=== PATIENT | male | born 1960 | race Hispanic/Latino ===

== ENCOUNTER 2018-04-25 11:51 | Inpatient (IN) | payer OTHER, SELFPAY ==
[2018-04-20 14:18] VITALS: BMI 26.4
[2018-04-25] VITALS (12 sets, daily range): BP systolic 120–157; BP diastolic 66–93; PULSE 71–84; RESP 12–163; TEMP 36.2–37.4; O2SAT 93–100; BMI 25.0
[2018-04-25] MEDS: LACTATED RINGERS 1,000 ML 42 ML IV ×2 (12:46→14:24)
[2018-04-25] MEDS: CEFAZOLIN 1 GM/50 ML FROZ.PIGGY IV (13:18)
--- NOTE | 2018-04-25 13:20 | PM.PREOP ---
Pre-operative Note Interval Note Pre-op Check: History & Physical Reviewed by Physician and Changes
--- NOTE | 2018-04-25 13:52 | SUR.OPER ---
Supine on padded OR bed. Pillow under head, arms secured on padded armboards <90 degree abduction. Safety belt across torso. Non-operative leg secured with tape over blanket over lower leg. Operative leg secured in [place]/True positioner.
[2018-04-25] MEDS: MORPHINE 4 MG/ML INJ INJ (14:33)
[2018-04-25] MEDS: BUPIVACAINE 0.25% W/ EPI 50 ML VIAL INJ (14:33)
[2018-04-25] MEDS: BUPIVACAINE LIPOSOME 266 MG/20 ML VIAL INJ (14:33)
--- NOTE | 2018-04-25 15:09 | DI.RAD.S_ITS ---
PROCEDURE: XR KNEE RT 1TO2V INDICATIONS: post operative right total knee TECHNIQUE: 2 view(s) of the knee acquired. [facility] KNEE ARTHRITIC SERIES RT, 10/13/2017, 15:18. FINDINGS: Bones: Patient is status post knee joint arthroplasty. Hardware components are in expected positions. Visualized bony structures are intact. Soft tissues: Overlying postoperative changes are noted. IMPRESSION: Acute postoperative changes of total right knee arthroplasty with expected appearance Dictated by: Fei Miguel M.D. on 04/25/2018 at 15:37 Approved by: Fei Miguel M.D. on 04/25/2018 at 15:37
--- NOTE | 2018-04-25 15:10 | P.OP_ITS ---
Operative Date/Time/Diagnoses - Date of procedure: 04/25/18 Time of procedure: 15:10 Pre-op diagnosis: Right knee posttraumatic osteoarthritis Post-op diagnosis: same Procedure & Clinicians Procedure: Right total knee replacement Same procedure as scheduled: Yes Indications: The patient has had progressively worsening right knee pain with radiographic changes consistent with arthritis. Non-operative management has failed and the patient has requested total knee replacement. The risks, benefits and alternatives to surgery were discussed with the patient prior to proceeding. Risks discussed included, but were not limited to, failure to relieve pain, stiffness, infection, nerve damage, deep venous thrombosis, pulmonary embolism, stroke, coma, heart attack, permanent paralysis and , as well as the potential need for eventual revision of the prosthetic. Surgeon: Tommie Mclaughlin Separations Scientist: Shae Zavala Click Yes if Unassisted: No Anesthesia Type: Spinal, Sedation and Local Operative Notes Findings: Severe lateral and moderate patellofemoral osteoarthritis. Closure Type: primary Specimen(s): none sent Implants & Drains: Implants used in this procedure were manufactured by the [employer] and [employer]) and included the BCS II Journey total knee replacement with a size 5 right Oxinium femoral component, a size 4 right non porous tibial base plate, a 9 mm cross-linked polyethylene BCS II tibial insert and a 32 mm oval Maddy II patella. Applied: implant(s) Estimated Blood Loss (mL): 50 Blood products transfused: none Tourniquet time (min): 51 Procedure in detail: The patient was seen in the pre-operative area, where the patient identified the right knee as the operative site and this was marked with my initials. The patient received pre-operative antibiotics, and was taken to the operating room and placed on the operative table in the supine position. After satisfactory anesthesia, a part time flexible clerk out was performed. The right leg was encircled with a tourniquet about the proximal thigh, and the leg was prepared from the toes to the tourniquet with ChloroPrep in the usual fashion and draped through sterile drapes. The leg was elevated and exsanguinated with Eschmark bandage and the tourniquet inflated to 250 mmHg pressure. The knee was approached through an approximately 18 cm incision centered over the patella and carried into the knee through a medial parapatellar arthrotomy. The anterior osteophytes and soft tissues were removed. The rotational landmarks of Phani's line and the transepicondylar axis were marked on the femur with electrocautery, and intramedullary guide holes for the femur and tibia were created. The distal femoral cut was made in 6 degrees of valgus using the intramedullary guide at the primary cut setting. The proximal tibial cut was then made using the intramedullary guide, taking 9 mm of bone off the less involved side. The extension gap was checked and the rotation of the femoral component confirmed with the gap balancing system. The anterior, posterior and chamfer cuts were then made. The posterior osteophytes and soft tissues were then removed. The posterior capsule was injected with part of a mixture of 50 ml 0.25% Marcaine mixed with 20 ml Exparel and 4 mg of morphine for post-operative pain control. The remainder of this mixture was injected into the capsule and subcutaneous tissues during cement curing. The tibia was prepared with the rotation set by an extra medullary guide. Trial tibial and femoral components were then placed and the intercondylar notch cut through the femoral trial. Range of motion was 0-135 degrees, with good stability throughout the range. The patella was then cut to accommodate the patellar prosthetic. There was no need for a lateral release. The trials were then removed, and the femoral hole plugged with a bone plug. The bone was prepared with pulsatile lavage, and dried with a sponge. Cement was applied and the final prosthetics placed. Excess cement was removed during and after cement curing. After confirming there was no extruded cement posteriorly, the final tibial insert was placed. The knee was copiously irrigated and the tourniquet deflated. Hemostasis was obtained. The capsule was closed with interrupted # 2 polyester suture. The subcutaneous layer was closed with 3-0 Vicryl, and the skin with a running 3-0 V-Lock suture and SteriStrips. An Aquacel Ag dressing was applied and the patient was taken to recovery having tolerated the procedure well. Complications: none Condition: stable Disposition: PACU Plan for aftercare: The patient will be maintained on a standard total knee replacement protocol with weight bearing as tolerated. The patient will receive aspirin and sequential compression devices for DVT prophylaxis. The patient will be discharged home when safe for the home environment.
[2018-04-25] MEDS: OXYCODONE IR 10 MG TABLET PO ×2 (16:29→19:33)
[2018-04-25] MEDS: LACTATED RINGERS 1,000 ML 125 ML IV ×2 (16:30→21:55)
[2018-04-25] MEDS: HYDROMORPHONE 2 MG INJ IV (17:47)
[2018-04-25] MEDS: ACETAMINOPHEN 325 MG TABLET 650 MG PO ×2 (19:34→23:58)
[2018-04-25] MEDS: CEFAZOLIN 2 GM/100 ML FROZ.PIGGY IV (21:30)
[2018-04-25] MEDS: ASPIRIN EC 81 MG TABLET PO (21:30)
[2018-04-25] MEDS: DOCUSATE 100 MG CAPSULE PO (21:30)
[2018-04-26] MEDS: hydrOXYzine pamoate 25 MG CAPSULE PO
[2018-04-26] MEDS: OXYCODONE IR 10 MG TABLET PO ×6 (00:01→22:24)
[2018-04-26 05:00] VITALS: BP 131/80; PULSE 90; RESP 22; TEMP 36.8; O2SAT 97
[2018-04-26] MEDS: CEFAZOLIN 2 GM/100 ML FROZ.PIGGY IV (05:01)
[2018-04-26] MEDS: ACETAMINOPHEN 325 MG TABLET 650 MG PO ×3 (05:04→17:11)
[2018-04-26] MEDS: LACTATED RINGERS 1,000 ML 125 ML IV (05:08)
[2018-04-26 07:20] LABS: Hematocrit 37.3 % (41-53); Hemoglobin 12.6 g/dL (13.5-17.5)
[2018-04-26 07:25] VITALS: BP 139/91; PULSE 111; RESP 16; TEMP 36.6; O2SAT 98
[2018-04-26] MEDS: DOCUSATE 100 MG CAPSULE PO ×2 (09:13→20:12)
[2018-04-26] MEDS: ASPIRIN EC 81 MG TABLET PO ×2 (09:13→20:12)
[2018-04-26] MEDS: LOSARTAN 50 MG TABLET PO (09:14)
[2018-04-26 11:20] VITALS: BP 155/90; PULSE 92; RESP 17; TEMP 36.6; O2SAT 98
--- NOTE | 2018-04-26 12:20 | PT.IIE ---
Current Diagnoses Unilateral post-traumatic osteoarthritis, right knee (04/25/18) Derangement of unspecified lateral meniscus due to old tear or injury, right knee (04/25/18) Surgery Performed Operation Date: 04/25/18 13:45 Actual Procedures p Total Knee Arthroplasty(Right) - Tommie Mclaughlin MD Surgical History (Last Updated 04/20/18 @ 14:44 by Yesenia Parrish, RN) S/P right knee arthroscopy (Acute) Medical History (Last Updated 04/20/18 @ 15:30 by Yesenia Parrish, RN) Old tear of lateral meniscus of right knee (Acute) Constipation (Acute) Depression (Acute) Fracture, ankle (Acute) Hip pain (Acute) History of headache (Acute) Hypertension (Acute) Impaired vision (Acute) Insomnia (Acute) Low back pain (Acute) Osteoarthritis (Acute) Spinal stenosis (Acute) Physical Therapy Inpatient Evaluation/Re-Eval M1 PT/OT-IP Prior Functional Status Start: 04/26/18 08:14 Freq: NEEDED Status: Active Protocol: Document 04/26/18 10:20 RS (Rec: 04/26/18 12:20 RS [id number]) Medical Review Prior Functional Status Medical History Reviewed Yes Diet/Fluid Consistency Regular Communication no known deficits Mobility and Gait ind with all mobility, drives, currently not able to work Social History Household Members none other Living Arrangements House Number of Floors (Floors) One Floor Number of Stairs To Enter/Railing? 2STE with 1 rail Home Environment Standard Height Toilet Home Equipment Crutches Employment Status Unemployed Additional Social History Comment This might be from a work injury, currently no able to work. M2 PT-IP Current Condition Start: 04/26/18 08:14 Freq: NEEDED Status: Active Protocol: Document 04/26/18 10:20 RS (Rec: 04/26/18 12:20 RS [id number]) Physical Therapy Current Condition Current Condition Evaluation Date 04/26/18 Treatment Diagnosis impaired mobility s/p R TKA Onset Date 04/25/18 Weight Bearing Status Weight Bearing Status Weight Bear as Tolerated M3 PT-IP Subjective Start: 04/26/18 08:14 Freq: NEEDED Status: Active Protocol: Document 04/26/18 10:20 RS (Rec: 04/26/18 12:20 RS [id number]) Subjective Physical Therapy Visit Type Type Initial Evaluation Visit Start Time 09:30 Visit Stop Time 10:20 Total Visit Minutes 50 Notes Persian interpretter utilized the entire session Physical Therapy Visit Comments Patient Comments Pt reports doing well but nervous about getting up. Patient/Caregiver Goals go home when ready Therapy Pain Assessment Pain When Pain Assessed At Rest Pain Present Pain Present Pain Reported Location right knee Intensity 2 Scale Used Numeric (1 - 10) Pain Management Techniques Apply Cold Modification of Treatment Re-positioning Timing of Activity with Medications M4 PT-IP Mobility and Gait Start: 04/26/18 08:14 Freq: NEEDED Status: Active Protocol: Document 04/26/18 10:20 RS (Rec: 04/26/18 12:20 RS [id number]) PT-Bed Mobility Assessment Supine to Sit Supine to Sit Standby Assistance 1 Person Assistance Head of Bed Elevated Scooting Scooting to Edge of Bed Standby Assistance PT-Transfer Assessment Sit to and From Stand Sit to and from Stand Contact Guard Assistance 1 Person Assistance Use of Upper Extremities Equipment Transfer Assistive Device Gait Belt Front Wheeled Walker Transfers Transfer Destination Chair Transfer Technique Stand Step Pivot Transfer Ability Level of Assist Contact Guard Assistance 1 Person Assistance Use of Upper Extremities Comments Mobility Comments Pt initially reported being a little dizzy, BP normal, it went away quickly. Gait Assessment Gait Gait Assistance Required: Contact Guard Assist 1 Person Assist Distance (Feet) (feet) 25 Assistive Devices Assistive Device Gait Belt Front Wheeled Walker Gait Deviations General Gait Pattern Antalgic Decreased Stride Length Decreased Feet Clearance Step-to Gait Factors Limiting Gait Function Factors Limiting Gait Function Decreased Activity Tolerance Decreased Strength Limited Range of Motion Pain Comments Gait Comments Pt stable without any LOB, relying heavily on BUE to unweight the RLE, might need to try a slightly shorter FWW. Stair Climbing Assessment Comments Stair Climbing Comments not yet tested PT-Balance Assessment Sitting Balance and Reactions Static Sitting Balance Ability Normal Dynamic Sitting Balance Ability Normal Standing Balance and Reactions Static Standing Balance Ability Good Dynamic Standing Balance Ability Fair Device Used FWW M5 PT-IP Objective Assessments Start: 04/26/18 08:14 Freq: NEEDED Status: Active Protocol: Document 04/26/18 10:20 RS (Rec: 04/26/18 12:20 RS [id number]) Orientation Orientation/Cognition Level of Alertness Alert Orientation Name Age Birthday Month Date Year Day of Week Place Situation Language Function Ability No Deficits Noted Safety Awareness Understands Safety Issues Memory Description No Deficits Noted Gross Range of Motion Upper Extremity ROM Assessment Within Functional Limits Lower Extremity ROM Assessment Right Impaired Strength Upper Extremity Strength Assessment Within Functional Limits Comments Strength Comments RLE not formally tested, LLE WFL. M6 PT-IP Treatment Start: 04/26/18 08:14 Freq: NEEDED Status: Active Protocol: Document 04/26/18 10:20 RS (Rec: 04/26/18 12:20 RS [id number]) Physical Therapy Treatment Exercises Exercises Ankle Pumps Quad Sets Heel Slides Straight Leg Raises Short Arc Quads Passive Knee Extension Hang Seated Knee Flexion/Extension Knee ROM Measurement 10-70 Education Education Provided Precautions Weight Bearing Status Post-Op Packet Safety M7 PT-IP Assessment and Plan Start: 04/26/18 08:14 Freq: NEEDED Status: Active Protocol: Document 04/26/18 10:20 RS (Rec: 04/26/18 12:20 RS [id number]) PT Summary Assessment and Plan Potential Rehabilitation Potential Good Status of Condition at Evaluation Stable Summary Impairments Pain ROM Strength Bed Mobility Transfers Gait Activity Tolerance Progress Towards Goals Progressing Toward Goals Assessment Summary Pt doing well POD#1, will likely need to get a FWW prior to discharge but will trial crutches per pt's wishes. Anticipate that with ongoing skilled acute PT and regular mobilization with nursing staff that pt will be safe to discharge directly to home with intermittent assist from friends. Pt will benefit from either OPPT or HHPT, will continue to assess and update discharge recommendations. Goals Bed Mobility Goal Independent Transfer Goal Independent Crutches Front Wheeled Walker Gait Goal Independent Crutches Front Wheel Walker Gait Distance 100 Other Goals Up/down two steps with CGA, LRAD and/or 1 rail. Days to Meet Goals 2 Frequency of Treatment Frequency Of Treatment Twice a Day Treatment Plan Physical Therapy Treatment Plan Bed Mobility Training Transfer Training Gait Training Therapeutic Exercise Discharge Planning Other Recommendations and Next Treatment trial stairs, crutches, Focus establish need for formalized caregiver training Recommendations To Nursing Amount of Assist Needed 1 Person Assist Discharge Recommendations PT Discharge Recommendations Home with Assistance Home Health Outpatient PT Provider Visit Care Team Role Provider Type Tommie Mclaughlin MD Admit Provider Physician Attending Provider Specialty: Orthopedic Surgery
--- NOTE | 2018-04-26 14:16 | CM.DPNOTE ---
DCP/Assessment completed via fire eater provided by [employer]: Eulalio Sadler. Patient is independent at baseline and has OP PT scheduled. He has no concerns or needs at this time. Plan: Patient to discharge home with supportive friends and OP PT when medically stable.
--- NOTE | 2018-04-26 14:42 | PM.PNPO.1 ---
Subjective Date Patient Seen: 04/26/18 Time Patient Seen: 14:42 Interval history: Patient is postop day 1. Right total knee arthroplasty by Dr. Mclaughlin. German-speaking only. Party Plan Demonstrator in the room. Patient states that he has only ambulated in the room with PT. Pain controlled with medications. Already has his discharge medications. Feels that he is not ready to go home today. Exam Vital Signs (past 8 hours): Vital Signs - 8 hr 04/26/18 07:25 04/26/18 11:20 Temperature 97.9 F 97.9 F Pulse Rate 111 H 92 H Respiratory Rate 16 17 Blood Pressure 139/91 H 155/90 H Pulse Oximetry 98 98 Pulse Oximetry 98 Oxygen Delivery Method Room Air Narrative Exam Narrative: Patient in chair. Appears comfortable. Alert and orient x3. Right knee dressing intact with 1 spot of blood at the lower end of the dressing. Albert bandage overwrap on the right knee. Bilateral calves soft and nontender. 5/5 right ankle strength. Neurovascular status intact. Objective Labs Result Diagrams: 04/26/18 06:50 Labs: Laboratory Results - last 24 hr 04/26/18 06:50 Hgb 12.6 L Hct 37.3 L Assessment & Plan Post-op (1) Osteoarthritis of right knee: Problem details: Patient is postop day 1 right total knee arthroplasty. Continue to ambulate with physical therapy. Continue pain medications. Will continue DVT prophylaxis with aspirin 81 mg b.i.d. and SCDs. Plan for discharge home tomorrow. Current Visit: Yes Status: Acute Postoperative Procedures Operation Date: 04/25/18 13:45 Actual Procedures Side Surgeon p Total Knee Arthroplasty Right Tommie Mclaughlin MD Time Spent With Patient less than 15 minutes
--- NOTE | 2018-04-26 14:46 | P.PN_ITS ---
Subjective Date Patient Seen: 04/26/18 Time Patient Seen: 14:42 Interval history: Patient is postop day 1. Right total knee arthroplasty by Dr. Mclaughlin. Kosovan-speaking only. Line Palletizer in the room. Patient states that he has only ambulated in the room with PT. Pain controlled with medications. Already has his discharge medications. Feels that he is not ready to go home today. Exam Vital Signs (past 8 hours): Vital Signs - 8 hr 3 04/26/18 07:25 04/26/18 11:20 Temperature 97.9 F 97.9 F Pulse Rate 111 H 92 H Respiratory Rate 16 17 Blood Pressure 139/91 H 155/90 H Pulse Oximetry 98 98 Pulse Oximetry 98 Oxygen Delivery Method Room Air Narrative Exam Narrative: Patient in chair. Appears comfortable. Alert and orient x3. Right knee dressing intact with 1 spot of blood at the lower end of the dressing. Albert bandage overwrap on the right knee. Bilateral calves soft and nontender. 5/5 right ankle strength. Neurovascular status intact. Objective Labs Result Diagrams: 04/26/18 06:50 Labs: Laboratory Results - last 24 hr 04/26/18 06:50 Hgb 12.6 L Hct 37.3 L Assessment & Plan Post-op (1) Osteoarthritis of right knee: Problem details: Patient is postop day 1 right total knee arthroplasty. Continue to ambulate with physical therapy. Continue pain medications. Will continue DVT prophylaxis with aspirin 81 mg b.i.d. and SCDs. Plan for discharge home tomorrow. Current Visit: Yes Status: Acute Postoperative Procedures Operation Date: 04/25/18 13:45 Actual Procedures Side Surgeon p Total Knee Arthroplasty Right Tommie Mclaughlin MD Time Spent With Patient less than 15 minutes
--- NOTE | 2018-04-26 15:00 | PT.IPTN ---
Current Diagnoses Unilateral primary osteoarthritis, right knee (04/25/18) Unilateral post-traumatic osteoarthritis, right knee (04/25/18) Derangement of unspecified lateral meniscus due to old tear or injury, right knee (04/25/18) Surgery Performed Operation Date: 04/25/18 13:45 Actual Procedures p Total Knee Arthroplasty(Right) - Tommie Mclaughlin MD Physical Therapy Treatment Note M2 PT-IP Current Condition Start: 04/26/18 08:14 Freq: NEEDED Status: Active Protocol: Document 04/26/18 14:15 DCW (Rec: 04/26/18 15:00 DCW [id number]) Physical Therapy Current Condition Current Condition Evaluation Date 04/26/18 Treatment Diagnosis impaired mobility s/p R TKA Onset Date 04/25/18 Weight Bearing Status Weight Bearing Status Weight Bear as Tolerated M3 PT-IP Subjective Start: 04/26/18 08:14 Freq: NEEDED Status: Active Protocol: Document 04/26/18 14:15 DCW (Rec: 04/26/18 15:00 DCW [id number]) Subjective Physical Therapy Visit Type Type Treatment Note Visit Start Time 14:15 Visit Stop Time 14:50 Total Visit Minutes 35 Notes Hebrew interpretter utilized the entire session Physical Therapy Visit Comments Patient Comments Pt reports he has been having some pain. M4 PT-IP Mobility and Gait Start: 04/26/18 08:14 Freq: NEEDED Status: Active Protocol: Document 04/26/18 14:15 DCW (Rec: 04/26/18 15:00 DCW [id number]) Gait Assessment Gait Gait Assistance Required: Contact Guard Assist 1 Person Assist Distance (Feet) (feet) 100 Assistive Devices Assistive Device Gait Belt Front Wheeled Walker Gait Deviations General Gait Pattern Antalgic Decreased Stride Length Decreased Feet Clearance Step-to Gait Factors Limiting Gait Function Factors Limiting Gait Function Decreased Activity Tolerance Decreased Strength Limited Range of Motion Pain Comments Gait Comments Verbal cues tofocus on step- through gait, pt puts significant force through upper eztremities. M6 PT-IP Treatment Start: 04/26/18 08:14 Freq: NEEDED Status: Active Protocol: Document 04/26/18 14:15 DCW (Rec: 04/26/18 15:00 DCW [id number]) Physical Therapy Treatment Exercises Exercises Ankle Pumps Heel Slides Other Treatments Other Treatment Performed Seated Marching LAQ M7 PT-IP Assessment and Plan Start: 04/26/18 08:14 Freq: NEEDED Status: Active Protocol: Document 04/26/18 14:15 DCW (Rec: 04/26/18 15:00 DCW [id number]) PT Summary Assessment and Plan Summary Impairments Pain ROM Strength Bed Mobility Transfers Gait Activity Tolerance Progress Towards Goals Progressing Toward Goals Assessment Summary POD #1: Pt continued to require verbal cues during ambulation for step-through gait and decreased reliance on UEs. Pt unable to perform LAQ or seated marching independently, required AAROM. With continued improvement, pt will likely discharge home with OPPT. Goals Bed Mobility Goal Independent Transfer Goal Independent Crutches Front Wheeled Walker Gait Goal Independent Crutches Front Wheel Walker Gait Distance 100 Other Goals Up/down two steps with CGA, LRAD and/or 1 rail. Days to Meet Goals 2 Frequency of Treatment Frequency Of Treatment Twice a Day Treatment Plan Physical Therapy Treatment Plan Bed Mobility Training Transfer Training Gait Training Therapeutic Exercise Discharge Planning Other Recommendations and Next Treatment trial stairs, crutches, Focus establish need for formalized caregiver training Recommendations To Nursing Amount of Assist Needed 1 Person Assist Discharge Recommendations PT Discharge Recommendations Home with Assistance Home Health Outpatient PT
[2018-04-26 17:50] VITALS: BP 158/94; PULSE 99; RESP 20; TEMP 36.9; O2SAT 98
--- NOTE | 2018-04-26 20:59 | PC.NURSE ---
Addendum entered by Estrella Chairez R.N. 04/26/18 22:56: Pt HR in high 80's to mid 90's after 20 mg diltiazem given. Tele NSR. Original Note: Addendum entered by Estrella Chairez R.N. 04/26/18 21:21: Discussed with Dr. Bishop over the phone results of Stat EKG ordered, showing SVT with moderate ST depression, pt remains asymptomatic. MD ordered telemetry monitoring, 20 mg IV diltiazem now and PRN 20 mg IV diltiazem if pt HR is greater than 120. Original Note: Evening Shift Note Pt HR increasing to 160's, BP 173/88, pt on RA 96%, pt diaphoretic, denies chest pain, denies SOB, denies pain in R knee. Stat EKG ordered which showed supraventricular tachycardia with moderate ST depression. Contacted Dr. Mclaughlin to make aware, STAT cardiac enzymes ordered, telemetry placed on patient. MD stated he will contact hospitalist to come assess patient. Continuous pulse ox in place.
[2018-04-26 21:35] LABS: Creatine Kinase 138 U/L (55-170)
[2018-04-26 21:37] VITALS: BP 140/88; PULSE 145
[2018-04-26] MEDS: dilTIAZem 25 MG/5 ML SDV 20 MG IV (21:37)
[2018-04-26 21:50] LABS: Troponin I < 0.012 ng/mL (0.01-0.034)
[2018-04-26 21:51] LABS: CKMB % Relative Index 0.4 % (1.5-5.0); Creatine Kinase MB 0.57 ng/mL (<2.37)
[2018-04-27] VITALS (8 sets, daily range): BP systolic 111–141; BP diastolic 68–101; PULSE 73–160; RESP 16–20; TEMP 36.6–37.6; O2SAT 93–98
[2018-04-27] MEDS: ACETAMINOPHEN 325 MG TABLET 650 MG PO ×4 (00:30→17:52)
[2018-04-27] MEDS: hydrOXYzine pamoate 25 MG CAPSULE PO (00:34)
[2018-04-27] MEDS: dilTIAZem 25 MG/5 ML SDV 20 MG IV (07:55)
--- NOTE | 2018-04-27 08:44 | PC.NURSE ---
Pt had a bowel movement this morning without any difficulty. Heart rate up to the 150s and 20 mg of iv diltiazem administered and pts heart rate down to the 90s. He denies any chest pain and is feeling better. When episode started pt states that he did feel anxious. Dr. Serrano aware by note on her office door. Have not seen her come in to the hospital yet this morning.
[2018-04-27] MEDS: OXYCODONE IR 10 MG TABLET PO ×4 (09:09→20:21)
[2018-04-27] MEDS: LOSARTAN 50 MG TABLET PO (09:10)
[2018-04-27] MEDS: ASPIRIN EC 81 MG TABLET PO ×2 (09:10→20:22)
[2018-04-27] MEDS: DOCUSATE 100 MG CAPSULE PO (09:10)
--- NOTE | 2018-04-27 11:16 | PM.CN ---
History of Present Illness Date Patient Seen: 04/27/18 Time Patient Seen: 11:00 Chief complaint: [id number] RIGHT TOTAL KNEE ARTHROPLASTY Reason for consult: I was asked by Dr. Mclaughlin to see this patient for tachycardia after surge Requesting provider: Tommie Mclaughlin Narrative: 57-year-old man with history of hypertension who was electively admitted 3 days ago for right total knee arthroplasty. He was noted to have heart rate of 100 and 60s last night. His heart rate did improve with IV diltiazem. He had another incident where his heart rate went up to 150 earlier this morning. He again received IV diltiazem. Patient feels that he was having pain both incidences when his heart rate went up. He did have prior history of intermittent palpitations. He did not have a definitive diagnosis of was the underlying rhythm. No prior history of coronary artery disease. He denies chest pain [facility] Medical History Osteoarthritis of right knee (Acute) Old tear of lateral meniscus of right knee (Acute) Constipation (Acute) Depression (Acute) Fracture, ankle (Acute) Hip pain (Acute) History of headache (Acute) Hypertension (Acute) Impaired vision (Acute) Insomnia (Acute) Low back pain (Acute) Osteoarthritis (Acute) Spinal stenosis (Acute) Surgical History S/P right knee arthroscopy (Acute) Social History household members: none and other Smoking Status: Never smoker alcohol intake: current Meds Home Medications Medication Instructions Recorded Confirmed Type losartan 50 mg PO DAILY 04/20/18 04/25/18 History omeprazole 20 mg PO PRN PRN 04/20/18 04/25/18 History Allergies Allergy/AdvReac Type Severity Reaction Status Date / Time No Known Drug Allergies Allergy Verified 04/25/18 12:20 Exam Vital Signs (past 8 hours): Vital Signs - 8 hr 04/27/18 05:35 04/27/18 07:25 04/27/18 07:55 Temperature 97.8 F 97.9 F Pulse Rate 93 H 89 160 H Respiratory Rate 20 16 Blood Pressure 128/93 H 141/101 H Pulse Oximetry 97 95 04/27/18 09:10 Temperature Pulse Rate 87 Respiratory Rate Blood Pressure 137/79 H Pulse Oximetry Pulse Oximetry 95 Oxygen Delivery Method Room Air Narrative Exam Narrative: GENERAL: Well-appearing, well-nourished and in no acute distress. HEENT: Head normocephalic, atraumatic. Eyes pupils equal round NECK: Supple, no JVD, CHEST: Breath sounds equal bilaterally, no wheezes rales or rhonchi. CARDIAC: Regular rate and rhythm without murmurs, heart rate was 90, no rubs or gallops. ABDOMEN: Soft, nontender. Normoactive bowel sounds all 4 quadrants. No guarding or rebound. EXTREMITIES: No pitting edema on bilateral ankles. Right knee was dressed and dressing NEUROLOGICAL: Alert and oriented; Normal muscle strength. SKIN: Warm, dry, no petechiae, no rashes or lesions. Objective Imaging EKG: ECG: EKG showed supraventricular tachycardia with heart rate of 160. No acute ST-T changes Labs Result Diagrams: 04/26/18 06:50 Labs: Laboratory Results - last 24 hr 04/26/18 21:10 Total Creatine Kinase 138 CK-MB (CK-2) 0.57 CK-MB (CK-2) Rel Index 0.4 L Troponin I < 0.012 Assessment & Plan Plan: Assessment/Plan Narrative: 1. Paroxysmal supraventricular tachycardia: May be associated with pain after surgery. We will start him on oral metoprolol XL 100 mg daily. Continue as needed IV diltiazem as needed for rate control. 2. Hypertension: Start metoprolol XL 100 mg daily. Decrease losartan from 50 mg once a day to 25 mg once a day. Continue monitor his blood pressure readings 3. Osteoarthritis in the right knee: Status post right total knee arthroplasty by Dr. Mclaughlin on April 25, 2018. Followed by Orthopedics service. 4. DVT prophylaxis: Per ortho service
--- NOTE | 2018-04-27 11:23 | P.CONS_ITS ---
History of Present Illness Date Patient Seen: 04/27/18 Time Patient Seen: 11:00 Chief complaint: [id number] RIGHT TOTAL KNEE ARTHROPLASTY Reason for consult: I was asked by Dr. Mclaughlin to see this patient for tachycardia after surge Requesting provider: Tommie Mclaughlin Narrative: 57-year-old man with history of hypertension who was electively admitted 3 days ago for right total knee arthroplasty. He was noted to have heart rate of 100 and 60s last night. His heart rate did improve with IV diltiazem. He had another incident where his heart rate went up to 150 earlier this morning. He again received IV diltiazem. Patient feels that he was having pain both incidences when his heart rate went up. He did have prior history of intermittent palpitations. He did not have a definitive diagnosis of was the underlying rhythm. No prior history of coronary artery disease. He denies chest pain [facility] Medical History Osteoarthritis of right knee (Acute) Old tear of lateral meniscus of right knee (Acute) Constipation (Acute) Depression (Acute) Fracture, ankle (Acute) Hip pain (Acute) History of headache (Acute) Hypertension (Acute) Impaired vision (Acute) Insomnia (Acute) Low back pain (Acute) Osteoarthritis (Acute) Spinal stenosis (Acute) Surgical History S/P right knee arthroscopy (Acute) Social History household members: none and other Smoking Status: Never smoker alcohol intake: current Meds Home Medications Medication Instructions Recorded Confirmed Type losartan 50 mg PO DAILY 04/20/18 04/25/18 History omeprazole 20 mg PO PRN PRN 04/20/18 04/25/18 History Allergies Allergy/AdvReac Type Severity Reaction Status Date / Time No Known Drug Allergies Allergy Verified 04/25/18 12:20 Exam Vital Signs (past 8 hours): Vital Signs - 8 hr 3 04/27/18 05:35 04/27/18 07:25 04/27/18 07:55 Temperature 97.8 F 97.9 F Pulse Rate 93 H 89 160 H Respiratory Rate 20 16 Blood Pressure 128/93 H 141/101 H Pulse Oximetry 97 95 3 04/27/18 09:10 Temperature Pulse Rate 87 Respiratory Rate Blood Pressure 137/79 H Pulse Oximetry Pulse Oximetry 95 Oxygen Delivery Method Room Air Narrative Exam Narrative: GENERAL: Well-appearing, well-nourished and in no acute distress. HEENT: Head normocephalic, atraumatic. Eyes pupils equal round NECK: Supple, no JVD, CHEST: Breath sounds equal bilaterally, no wheezes rales or rhonchi. CARDIAC: Regular rate and rhythm without murmurs, heart rate was 90, no rubs or gallops. ABDOMEN: Soft, nontender. Normoactive bowel sounds all 4 quadrants. No guarding or rebound. EXTREMITIES: No pitting edema on bilateral ankles. Right knee was dressed and dressing NEUROLOGICAL: Alert and oriented; Normal muscle strength. SKIN: Warm, dry, no petechiae, no rashes or lesions. Objective Imaging EKG: ECG: EKG showed supraventricular tachycardia with heart rate of 160. No acute ST-T changes Labs Result Diagrams: 04/26/18 06:50 Labs: Laboratory Results - last 24 hr 04/26/18 21:10 Total Creatine Kinase 138 CK-MB (CK-2) 0.57 CK-MB (CK-2) Rel Index 0.4 L Troponin I < 0.012 Assessment & Plan Plan: Assessment/Plan Narrative: 1. Paroxysmal supraventricular tachycardia: May be associated with pain after surgery. We will start him on oral metoprolol XL 100 mg daily. Continue as needed IV diltiazem as needed for rate control. 2. Hypertension: Start metoprolol XL 100 mg daily. Decrease losartan from 50 mg once a day to 25 mg once a day. Continue monitor his blood pressure readings 3. Osteoarthritis in the right knee: Status post right total knee arthroplasty by Dr. Mclaughlin on April 25, 2018. Followed by Orthopedics service. 4. DVT prophylaxis: Per ortho service
[2018-04-27] MEDS: METOPROLOL ER 50 MG TABLET 100 MG PO (12:31)
--- NOTE | 2018-04-27 12:41 | P.PN_ITS ---
Subjective Date Patient Seen: 04/27/18 Time Patient Seen: 12:41 Interval history: POD #2 status post right total knee arthroplasty with Dr. Mclaughlin. Patient had an episode of SVT last night and this morning. Hospitalist was consulted. Patient started on metoprolol. Patient has a history of prior palpitations but no significant cardiac history. He has been up with PT. Exam Vital Signs (past 8 hours): Vital Signs - 8 hr 3 04/27/18 05:35 04/27/18 07:25 04/27/18 07:55 Temperature 97.8 F 97.9 F Pulse Rate 93 H 89 160 H Respiratory Rate 20 16 Blood Pressure 128/93 H 141/101 H Pulse Oximetry 97 95 3 04/27/18 09:10 Temperature Pulse Rate 87 Respiratory Rate Blood Pressure 137/79 H Pulse Oximetry Pulse Oximetry 95 Oxygen Delivery Method Room Air Narrative Exam Narrative: Patient is sitting at bedside chair in no acute distress. He is alert and oriented x3. Calves are soft, compressible, nontender bilaterally. Dressing on right knee is CDI. Sensation intact to light touch throughout bilateral lower extremities. He is able to actively dorsiflex and plantar flex. Objective Labs Result Diagrams: 04/26/18 06:50 Labs: Laboratory Results - last 24 hr 04/26/18 21:10 Total Creatine Kinase 138 CK-MB (CK-2) 0.57 CK-MB (CK-2) Rel Index 0.4 L Troponin I < 0.012 Assessment & Plan Post-op (1) S/P total knee arthroplasty: Current Visit: Yes Status: Acute Postoperative Procedures Operation Date: 04/25/18 13:45 Actual Procedures Side Surgeon p Total Knee Arthroplasty Right Tommie Mclaughlin MD POD #2 status post right total knee arthroplasty with Dr. Mclaughlin. We will continue to monitor blood pressure and palpitations. Patient will continue to mobilize with physical therapy. Continue ASA for DVT prophylaxis. Continue current pain management. Likely discharged in next 1-2 days once stable. Time Spent With Patient less than 15 minutes
--- NOTE | 2018-04-27 13:21 | PT.IPTN ---
Current Diagnoses Unilateral primary osteoarthritis, right knee (04/25/18) Unilateral post-traumatic osteoarthritis, right knee (04/25/18) Derangement of unspecified lateral meniscus due to old tear or injury, right knee (04/25/18) Presence of unspecified artificial knee joint (04/25/18) Surgery Performed Operation Date: 04/25/18 13:45 Actual Procedures p Total Knee Arthroplasty(Right) - Tommie Mclaughlin MD Physical Therapy Treatment Note M2 PT-IP Current Condition Start: 04/26/18 08:14 Freq: NEEDED Status: Active Protocol: Document 04/26/18 14:15 DCW (Rec: 04/26/18 15:00 DCW [id number]) Physical Therapy Current Condition Current Condition Evaluation Date 04/26/18 Treatment Diagnosis impaired mobility s/p R TKA Onset Date 04/25/18 Weight Bearing Status Weight Bearing Status Weight Bear as Tolerated M3 PT-IP Subjective Start: 04/26/18 08:14 Freq: NEEDED Status: Active Protocol: Document 04/27/18 11:20 CLB (Rec: 04/27/18 13:21 CLB [id number]) Subjective Physical Therapy Visit Type Type Treatment Note Visit Start Time 11:20 Visit Stop Time 11:45 Total Visit Minutes 25 Number of GAR[employer] INSTALLER Visits 1 Physical Therapy Visit Comments Patient Comments Pt willing to do therapy. Therapy Pain Assessment Pain When Pain Assessed During Mobility Pain Present Pain Present Pain Reported Location right knee Intensity 2 M4 PT-IP Mobility and Gait Start: 04/26/18 08:14 Freq: NEEDED Status: Active Protocol: Document 04/27/18 11:20 CLB (Rec: 04/27/18 13:21 CLB [id number]) PT-Transfer Assessment Sit to and From Stand Sit to and from Stand Contact Guard Assistance 1 Person Assistance Use of Upper Extremities Equipment Transfer Assistive Device Gait Belt Front Wheeled Walker Transfers Transfer Destination Chair Transfer Technique after walking in stern Transfer Ability Level of Assist Contact Guard Assistance 1 Person Assistance Use of Upper Extremities Comments Mobility Comments Pt doing well with mobility with no c/o dizziness. Gait Assessment Gait Gait Assistance Required: Contact Guard Assist Distance (Feet) (feet) 100 Assistive Devices Assistive Device Gait Belt Front Wheeled Walker Gait Deviations General Gait Pattern Antalgic Decreased Stride Length Decreased Feet Clearance Step-to Gait Factors Limiting Gait Function Factors Limiting Gait Function Decreased Activity Tolerance Decreased Strength Limited Range of Motion Pain Comments Gait Comments Pt using less UE strength during ambulation and is using a small step-through gait patter. Pt has good walker use and safety awareness. Stair Climbing Assessment Evaluation Level of Assist On Stairs Contact Guard Assistance Devices Stair Climbing Assistive Devices Left Railing Right Railing Technique/Endurance Stair Climbing Direction Ascend and Descend Stair Climbing Technique Step to Step Number of Steps Climbed 3 Query Text: Stair Climbing Set # Repetitions (reps) 2 Comments Stair Climbing Comments Pt did well with stairs and friend was present for stair training. Pt would benefit from another trial with stairs . M5 PT-IP Objective Assessments Start: 04/26/18 08:14 Freq: NEEDED Status: Active Protocol: Document 04/26/18 10:20 RS (Rec: 04/26/18 12:20 RS [id number]) Orientation Orientation/Cognition Level of Alertness Alert Orientation Name Age Birthday Month Date Year Day of Week Place Situation Language Function Ability No Deficits Noted Safety Awareness Understands Safety Issues Memory Description No Deficits Noted Gross Range of Motion Upper Extremity ROM Assessment Within Functional Limits Lower Extremity ROM Assessment Right Impaired Strength Upper Extremity Strength Assessment Within Functional Limits Comments Strength Comments RLE not formally tested, LLE WFL. M6 PT-IP Treatment Start: 04/26/18 08:14 Freq: NEEDED Status: Active Protocol: Document 04/27/18 11:20 CLB (Rec: 04/27/18 13:21 CLB [id number]) Physical Therapy Treatment Exercises Exercises Ankle Pumps Quad Sets Short Arc Quads Seated Knee Flexion/Extension M7 PT-IP Assessment and Plan Start: 04/26/18 08:14 Freq: NEEDED Status: Active Protocol: Document 04/27/18 11:20 CLB (Rec: 04/27/18 13:21 CLB [id number]) PT Summary Assessment and Plan Summary Impairments Pain ROM Strength Bed Mobility Transfers Gait Activity Tolerance Progress Towards Goals Progressing Toward Goals Assessment Summary Pt doing will with sit<> and needed minor cues for posture and step sequencing. Pt trialed stairs but would benefit from another session of stairs. Goals Bed Mobility Goal Independent Transfer Goal Independent Crutches Front Wheeled Walker Gait Goal Independent Crutches Front Wheel Walker Gait Distance 100 Other Goals Up/down two steps with CGA, LRAD and/or 1 rail. Days to Meet Goals 2 Frequency of Treatment Frequency Of Treatment Twice a Day Treatment Plan Other Recommendations and Next Treatment trial stairs, crutches, Focus establish need for formalized caregiver training Recommendations To Nursing Amount of Assist Needed 1 Person Assist Discharge Recommendations PT Discharge Recommendations Home with Assistance Home Health Outpatient PT
[2018-04-27 14:48] LABS: Add Manual Diff / Slide Review NO; Basophils Percent Auto 0.6 % (0-2); Eosinophils Percent Auto 0.4 % (2-4); Hematocrit 36.1 % (41-53); Hemoglobin 12.4 g/dL (13.5-17.5); Lymphocytes Percent Auto 14.1 % (25-40); Mean Corpuscular HGB Conc 34.4 % (30-36); Mean Corpuscular Hemoglobin 30.7 PG (26-34); Mean Corpuscular Volume 89.1 fL (80-100); Monocytes Percent Auto 10.6 % (3-14); Neutrophils Absolute Auto 7500 /uL (3000-5900); Neutrophils Percent Auto 74.3 % (50-75); Platelet Count 246 X10^3/uL (150-400); Red Blood Cell Count 4.05 X10^6/uL (4.5-5.9); Red Cell Distribution Width 13.7 % (11.6-14.8)
[2018-04-27 14:55] LABS: BUN Creatinine Ratio 15.7 (6-22); Blood Urea Nitrogen 11 mg/dL (9-20); Carbon Dioxide 28 mmol/L (22-32); Chloride 95 mmol/L (98-107); Estimated Glomerular Filt Rate > 60.0 mL/min (>60); Glucose 147 mg/dL (70-100); HEMOLYSIS < 15 (0-50); Potassium 4.4 mmol/L (3.4-5.1); Sodium 134 mmol/L (137-145)
[2018-04-27 15:52] LABS: TSH w/ Reflex to FT4 1.58 uIU/mL (0.47-4.68)
--- NOTE | 2018-04-27 16:32 | PT.IPTN ---
Current Diagnoses Unilateral primary osteoarthritis, right knee (04/25/18) Unilateral post-traumatic osteoarthritis, right knee (04/25/18) Derangement of unspecified lateral meniscus due to old tear or injury, right knee (04/25/18) Presence of unspecified artificial knee joint (04/25/18) Surgery Performed Operation Date: 04/25/18 13:45 Actual Procedures p Total Knee Arthroplasty(Right) - Tommie Mclaughlin MD Physical Therapy Treatment Note M2 PT-IP Current Condition Start: 04/26/18 08:14 Freq: NEEDED Status: Active Protocol: Document 04/26/18 14:15 DCW (Rec: 04/26/18 15:00 DCW [id number]) Physical Therapy Current Condition Current Condition Evaluation Date 04/26/18 Treatment Diagnosis impaired mobility s/p R TKA Onset Date 04/25/18 Weight Bearing Status Weight Bearing Status Weight Bear as Tolerated M3 PT-IP Subjective Start: 04/26/18 08:14 Freq: NEEDED Status: Active Protocol: Document 04/27/18 15:55 CLB (Rec: 04/27/18 16:32 CLB [id number]) Subjective Physical Therapy Visit Type Type Treatment Note Visit Start Time 15:55 Visit Stop Time 15:20 Total Visit Minutes 25 Number of [facility] ATTENDANT Visits 2 Physical Therapy Visit Comments Patient Comments Pt willing to do therapy. Therapy Pain Assessment Pain When Pain Assessed During Mobility Pain Present Pain Present Pain Reported Location right knee Intensity 6 Scale Used Numeric (1 - 10) Pain Management Techniques Apply Cold Modification of Treatment Re-positioning Timing of Activity with Medications M4 PT-IP Mobility and Gait Start: 04/26/18 08:14 Freq: NEEDED Status: Active Protocol: Document 04/27/18 15:55 CLB (Rec: 04/27/18 16:32 CLB [id number]) PT-Bed Mobility Assessment Supine to Sit Supine to Sit Standby Assistance 1 Person Assistance Sit to Supine Sit to Supine Minimal Assistance Scooting Scooting to Edge of Bed Standby Assistance PT-Transfer Assessment Sit to and From Stand Sit to and from Stand Contact Guard Assistance 1 Person Assistance Use of Upper Extremities Equipment Transfer Assistive Device Gait Belt Front Wheeled Walker Transfers Transfer Destination Bed Transfer Technique after walking in stern Transfer Ability Level of Assist Contact Guard Assistance 1 Person Assistance Use of Upper Extremities Comments Mobility Comments Pt continues to do well with all mobility, pt is hooking LLE under RLE to get RLE out and into bed. Gait Assessment Gait Gait Assistance Required: Contact Guard Assist Distance (Feet) (feet) 100 Assistive Devices Assistive Device Gait Belt Front Wheeled Walker Gait Deviations General Gait Pattern Antalgic Decreased Stride Length Decreased Feet Clearance Step-to Gait Factors Limiting Gait Function Factors Limiting Gait Function Decreased Activity Tolerance Decreased Strength Limited Range of Motion Pain Comments Gait Comments Pt needing cues to take smaller step with left foot. Pt using a small step-through gait pattern w/larger step with left foot. M5 PT-IP Objective Assessments Start: 04/26/18 08:14 Freq: NEEDED Status: Active Protocol: Document 04/26/18 10:20 RS (Rec: 04/26/18 12:20 RS [id number]) Orientation Orientation/Cognition Level of Alertness Alert Orientation Name Age Birthday Month Date Year Day of Week Place Situation Language Function Ability No Deficits Noted Safety Awareness Understands Safety Issues Memory Description No Deficits Noted Gross Range of Motion Upper Extremity ROM Assessment Within Functional Limits Lower Extremity ROM Assessment Right Impaired Strength Upper Extremity Strength Assessment Within Functional Limits Comments Strength Comments RLE not formally tested, LLE WFL. M6 PT-IP Treatment Start: 04/26/18 08:14 Freq: NEEDED Status: Active Protocol: Document 04/27/18 15:55 CLB (Rec: 04/27/18 16:32 CLB [id number]) Physical Therapy Treatment Exercises Exercises Quad Sets Heel Slides Short Arc Quads M7 PT-IP Assessment and Plan Start: 04/26/18 08:14 Freq: NEEDED Status: Active Protocol: Document 04/27/18 15:55 CLB (Rec: 04/27/18 16:32 CLB [id number]) PT Summary Assessment and Plan Summary Impairments Pain ROM Strength Bed Mobility Transfers Gait Activity Tolerance Progress Towards Goals Progressing Toward Goals Assessment Summary Pt continues to do well with bed mobility, transfers and gait. Pt needs minor cues for step sequencing with gait. Goals Bed Mobility Goal Independent Transfer Goal Independent Crutches Front Wheeled Walker Gait Goal Independent Crutches Front Wheel Walker Other Goals Up/down two steps with CGA, LRAD and/or 1 rail. Days to Meet Goals 2 Frequency of Treatment Frequency Of Treatment Twice a Day Treatment Plan Other Recommendations and Next Treatment stairs with friend [place] Focus Recommendations To Nursing Amount of Assist Needed 1 Person Assist Discharge Recommendations PT Discharge Recommendations Home with Assistance Home Health Outpatient PT
[2018-04-28] VITALS (9 sets, daily range): BP systolic 103–136; BP diastolic 65–81; PULSE 73–94; RESP 17–20; TEMP 36.5–37.1; O2SAT 95–98
[2018-04-28] MEDS: ACETAMINOPHEN 325 MG TABLET 650 MG PO ×4 (01:22→18:01)
[2018-04-28] MEDS: OXYCODONE IR 10 MG TABLET PO ×4 (01:22→19:15)
--- NOTE | 2018-04-28 07:41 | P.DS_ITS ---
History of Present Illness Date Patient Seen: 04/28/18 Time Patient Seen: 07:39 Chief complaint: [id number] RIGHT TOTAL KNEE ARTHROPLASTY Narrative: Patient is seen status post right TKA postop day 3. Patient is doing better. He denies any type of chest pain or shortness of breath. He is complaining of a little bit of knee pain however he has not had his morning dose of oxycodone. He would like to go home today. Discharge Providers Date of admission: 04/25/18 11:51 Consults: 04/25/18 15:50 Consult to Discharge Planning Routine Comment: Consult to Physical Therapy Evaluate & Treat Comment: Physician Instructions: postop TKA protocol 04/27/18 07:56 Consult to Hospitalist Service Routine Comment: Consulting Provider: Mley Serrano Reason for consultation: SVT last night Has provider been notified: Yes Discharge provider: Shae Zavala PA-C Summary Discharge Diagnosis: right knee osteoarthritis Hospital Course: Patient was admitted status post right TKA on 04/25/18. On postop day 2 patient had a run of SVT. He was seen by the hospitalist who placed him on a lower dose of losartan as well as extended release metoprolol. His heart rate has come down with these medications. His vitals are stable and he has been cleared by PT. Status at Discharge Cognitive/behavioral status at discharge: A&Ox4. Functional status at discharge: uses cane/walker Overall status at discharge: patient is progressing back to baseline Time Spent with Patient Less than 30 minutes Exam Vital Signs (past 8 hours): Vital Signs - 8 hr 3 04/28/18 01:25 04/28/18 04:01 Temperature 98.8 F 98.4 F Pulse Rate 76 73 Respiratory Rate 19 19 Blood Pressure 136/77 H 103/65 Pulse Oximetry 98 95 Pulse Oximetry 95 Oxygen Delivery Method Room Air Narrative Exam Narrative: Patient is well-developed well-nourished in no acute distress. Examination of the right knee shows mild inflammation with an Aquacel dressing that is clean dry and intact. No calf tenderness, full range of motion at the ankle. He is neurovascularly intact in this extremity. Objective Labs Result Diagrams: 04/27/18 14:35 04/27/18 14:35 Labs: Laboratory Results - last 24 hr 04/27/18 04/27/18 04/27/18 14:35 14:35 14:35 WBC 10.0 RBC 4.05 L Hgb 12.4 L Hct 36.1 L MCV 89.1 MCH 30.7 MCHC 34.4 RDW 13.7 Plt Count 246 Neut % (Auto) 74.3 Lymph % (Auto) 14.1 L Simpson % (Auto) 10.6 Eos % (Auto) 0.4 L Baso % (Auto) 0.6 Neut # (Auto) 7500 H Sodium 134 L Potassium 4.4 Chloride 95 L Carbon Dioxide 28 BUN 11 Creatinine 0.70 Estimated GFR > 60.0 BUN/Creatinine Ratio 15.7 Glucose 147 H Calcium 9.0 TSH 1.58 Discharge Plan Discharge Plan Patient Disposition: Home, Self-Care Discharge Med Rec/Prescriptions Prescriptions: New aspirin 81 mg Tablet,Delayed Release (Dr/Ec) 81 mg PO BID Qty: 0 RF: 0 docusate sodium 100 mg Capsule 100 mg PO BID Qty: 0 RF: 0 oxycodone 10 mg Tablet 5 mg PO Q4H PRN (Reason: Pain, Moderate) Qty: 0 RF: 0 metoprolol succinate 100 mg tablet extended release 24 hr 100 mg PO DAILY Qty: 30 RF: 0 losartan 25 mg tablet 25 mg PO DAILY Qty: 30 RF: 0 Continue omeprazole 20 mg Capsule,Delayed Release(Dr/Ec) 20 mg PO PRN PRN (Reason: Heartburn) RF: 0 Discontinued losartan 50 mg Tablet 50 mg PO DAILY RF: 0 Follow up/Referrals: Shae Zavala PA-C [Physician] - 05/06/18 1:00 pm (At the [place] office.) Mely Serrano MD [Physician] - (Please make an appointment within 3-5 days of d/ c) Provider Discharge Instructions Diet: Diet as Tolerated Activity: WBAT, rest when needed Cold/Heat Therapy: Ice and elevate at least 20 minutes per hour while awake Wound Care Report to your healthcare provider any signs of infection, such as:: chills, fever, night sweats, increased pain and unusual drainage Dressing: Keep Aquacel dressing on, may shower with it on, no bathing or soaking. Visit Report/Discharge Packet Instructions: DI for Knee Replacement Discharge Data Attending Provider: Tommie Mclaughlin Admit Date/Time: 04/25/18 11:51 Quality VTE Deep Vein Thrombosis/Pulmonary Embolism Present on Admission: No
[2018-04-28] MEDS: ASPIRIN EC 81 MG TABLET PO ×2 (09:00→20:02)
[2018-04-28] MEDS: DOCUSATE 100 MG CAPSULE PO ×2 (09:00→20:02)
[2018-04-28] MEDS: METOPROLOL ER 50 MG TABLET PO ×2 (09:01→11:00)
[2018-04-28] MEDS: LOSARTAN 25 MG TABLET PO (09:01)
--- NOTE | 2018-04-28 09:15 | P.PN_ITS ---
Subjective Date Patient Seen: 04/28/18 Time Patient Seen: 08:08 Interval history: This is postop day 3 for this 57-year-old patient with the total right knee arthroplasty. Patient is sitting in the bedside chair in no acute distress. Exam Vital Signs (past 8 hours): Vital Signs - 8 hr 3 04/28/18 01:25 04/28/18 04:01 04/28/18 08:32 Temperature 98.8 F 98.4 F 97.7 F Pulse Rate 76 73 79 Respiratory Rate 19 19 18 Blood Pressure 136/77 H 103/65 136/76 H Pulse Oximetry 98 95 97 Pulse Oximetry 97 Oxygen Delivery Method Room Air Narrative Exam Narrative: GENERAL: Well-appearing, well-nourished and in no acute distress. HEENT: Head normocephalic, atraumatic. Eyes pupils equal round NECK: Supple, no JVD, CHEST: Breath sounds equal bilaterally, no wheezes rales or rhonchi. CARDIAC: Regular rate and rhythm without murmurs, heart rate was 78, no rubs or gallops. ABDOMEN: Soft, nontender. Normoactive bowel sounds all 4 quadrants. No guarding or rebound. EXTREMITIES: No pitting edema on bilateral ankles. He has mild inflammation of the right knee. No calf tenderness, he has full range of motion at the ankles, and is neurovascularly intact in the extremities Right knee was dressed and dressing was intact with minimal spotting. NEUROLOGICAL: Alert and oriented; Normal muscle strength. SKIN: Warm, dry, no petechiae, no rashes or lesions. Objective Labs Result Diagrams: 04/27/18 14:35 04/27/18 14:35 Labs: Laboratory Results - last 24 hr 04/27/18 04/27/18 04/27/18 14:35 14:35 14:35 WBC 10.0 RBC 4.05 L Hgb 12.4 L Hct 36.1 L MCV 89.1 MCH 30.7 MCHC 34.4 RDW 13.7 Plt Count 246 Neut % (Auto) 74.3 Lymph % (Auto) 14.1 L [place] % (Auto) 10.6 Eos % (Auto) 0.4 L Baso % (Auto) 0.6 Neut # (Auto) 7500 H Sodium 134 L Potassium 4.4 Chloride 95 L Carbon Dioxide 28 BUN 11 Creatinine 0.70 Estimated GFR > 60.0 BUN/Creatinine Ratio 15.7 Glucose 147 H Calcium 9.0 TSH 1.58 Assessment & Plan Plan: Assessment/Plan Narrative: 1. Paroxysmal supraventricular tachycardia: May be associated with pain after surgery. His THS was normal. He was started yesterday on oral metoprolol XL 100 mg. There has been no need for further IV diltiazem for rate control since yesterday morning. His heart rate remains in the 70s that a low 80s. We will decrease his metoprolol XL to 50 mg daily for discharge.. 2. Hypertension: Start metoprolol XL 50 mg daily Decrease losartan from 50 mg once a day to 25 mg once a day. His blood pressure is currently well controlled. 3. Osteoarthritis in the right knee: Status post right total knee arthroplasty by Dr. Mclaughlin on April 25, 2018. Followed by Orthopedics service as outpatient. Quality VTE Deep Vein Thrombosis/Pulmonary Embolism Present on Admission: No
--- NOTE | 2018-04-28 09:35 | PT.IPTN ---
Current Diagnoses Unilateral primary osteoarthritis, right knee (04/25/18) Unilateral post-traumatic osteoarthritis, right knee (04/25/18) Derangement of unspecified lateral meniscus due to old tear or injury, right knee (04/25/18) Presence of unspecified artificial knee joint (04/25/18) Surgery Performed Operation Date: 04/25/18 13:45 Actual Procedures p Total Knee Arthroplasty(Right) - Tommie Mclaughlin MD Physical Therapy Treatment Note M2 PT-IP Current Condition Start: 04/26/18 08:14 Freq: NEEDED Status: Active Protocol: Document 04/26/18 14:15 DCW (Rec: 04/26/18 15:00 DCW [id number]) Physical Therapy Current Condition Current Condition Evaluation Date 04/26/18 Treatment Diagnosis impaired mobility s/p R TKA Onset Date 04/25/18 Weight Bearing Status Weight Bearing Status Weight Bear as Tolerated M3 PT-IP Subjective Start: 04/26/18 08:14 Freq: NEEDED Status: Active Protocol: Document 04/28/18 09:35 GGD (Rec: 04/28/18 12:22 GGD [email or web address]) Subjective Physical Therapy Visit Type Type Treatment Note Visit Start Time 09:00 Visit Stop Time 09:35 Total Visit Minutes 35 Number of HEALTH PROFESSIONAL Visits 3 Physical Therapy Visit Comments Patient Comments Pt wants to take a shower after PT. Therapy Pain Assessment Pain When Pain Assessed At Rest Pain Present Pain Present Denied Pain M4 PT-IP Mobility and Gait Start: 04/26/18 08:14 Freq: NEEDED Status: Active Protocol: Document 04/28/18 09:35 GGD (Rec: 04/28/18 12:22 GGD [email or web address]) PT-Transfer Assessment Sit to and From Stand Sit to and from Stand Standby Assistance Use of Upper Extremities Equipment Transfer Assistive Device Gait Belt Front Wheeled Walker Transfers Transfer Destination Toilet Transfer Technique gait Transfer Ability Level of Assist Standby Assistance Use of Upper Extremities Gait Assessment Gait Gait Assistance Required: Contact Guard Assist Distance (Feet) (feet) 200 Assistive Devices Assistive Device Gait Belt Front Wheeled Walker Gait Deviations General Gait Pattern Antalgic Decreased Stride Length Decreased Feet Clearance Factors Limiting Gait Function Factors Limiting Gait Function Decreased Activity Tolerance Decreased Strength Limited Range of Motion Pain Stair Climbing Assessment Evaluation Level of Assist On Stairs Contact Guard Assistance Devices Stair Climbing Assistive Devices Left Railing Technique/Endurance Stair Climbing Direction Ascend and Descend Stair Climbing Technique Step to Step Number of Steps Climbed 3 Query Text: Stair Climbing Set # Repetitions (reps) 1 s: Active Protocol: Document 04/28/18 09:35 GGD (Rec: 04/28/18 12:22 GGD [email or web address]) Physical Therapy Treatment Exercises Exercises Ankle Pumps Quad Sets Heel Slides Short Arc Quads Seated Knee Flexion/Extension Other Treatments Other Treatment Performed Issued FWW for home. M7 PT-IP Assessment and Plan Start: 04/26/18 08:14 Freq: NEEDED Status: Active Protocol: Document 04/28/18 09:35 GGD (Rec: 04/28/18 12:22 GGD [email or web address]) PT Summary Assessment and Plan Summary Assessment Summary Pt improving with mobility and safety. He need less assist and safe with stair mobility. He had a step through gait pattern. Frequency of Treatment Frequency Of Treatment Twice a Day Treatment Plan Other Recommendations and Next Treatment bed mobility. Focus Recommendations To Nursing Amount of Assist Needed 1 Person Assist Discharge Recommendations PT Discharge Recommendations Home with Assistance Home Health Outpatient PT
[2018-04-28] MEDS: dilTIAZem 25 MG/5 ML SDV 20 MG IV (09:58)
--- NOTE | 2018-04-28 14:53 | PC.NURSE ---
Addendum entered by Kimberlyn Fenton R.N. 04/28/18 15:04: AMBULATING WITH PHYSICAL THERAPY HR 92 PER TELE. Original Note: SHIFT SUMMARY: PATIENT SHOWERED THIS AM. AFTERWARDS HR 150'S TO 160'S. ASYMPTOMATIC. IV DILT GIVEN PER PRN ORDER. GEM NAVARRO NOTIFIED. INCREASED METOPROLOL UP TO 100MG AGAIN. HOLD DC HOME. AMBULATE AGAIN THIS AFTERNOON AND MONITOR HR. OXYCODONE AND TYLENOL FOR PAIN.
--- NOTE | 2018-04-28 15:20 | CM.DPC ---
DCP: continued: ortho PA did see pt today and deemed his stable for d/c to home as per plan. Hospitalist team cancelled the d/c after pt became tachycardic while having a shower (160). P: remains home when stable for same.
--- NOTE | 2018-04-28 15:43 | PT.IPTN ---
Current Diagnoses Unilateral primary osteoarthritis, right knee (04/25/18) Unilateral post-traumatic osteoarthritis, right knee (04/25/18) Derangement of unspecified lateral meniscus due to old tear or injury, right knee (04/25/18) Presence of unspecified artificial knee joint (04/25/18) Surgery Performed Operation Date: 04/25/18 13:45 Actual Procedures p Total Knee Arthroplasty(Right) - Tommie Mclaughlin MD Physical Therapy Treatment Note M2 PT-IP Current Condition Start: 04/26/18 08:14 Freq: NEEDED Status: Active Protocol: Document 04/26/18 14:15 DCW (Rec: 04/26/18 15:00 DCW [id number]) Physical Therapy Current Condition Current Condition Evaluation Date 04/26/18 Treatment Diagnosis impaired mobility s/p R TKA Onset Date 04/25/18 Weight Bearing Status Weight Bearing Status Weight Bear as Tolerated M3 PT-IP Subjective Start: 04/26/18 08:14 Freq: NEEDED Status: Active Protocol: Document 04/28/18 14:58 DCW (Rec: 04/28/18 15:42 DCW [id number]) Subjective Physical Therapy Visit Type Type Treatment Note Visit Start Time 14:58 Visit Stop Time 15:25 Total Visit Minutes 28 Number of HOME HEALTH SPEECH THERAPIST Visits 0 Physical Therapy Visit Comments Patient Comments Pt on phone when therapist entered room, quickly ended call and was excited to begin therapy session. M4 PT-IP Mobility and Gait Start: 04/26/18 08:14 Freq: NEEDED Status: Active Protocol: Document 04/28/18 14:58 DCW (Rec: 04/28/18 15:42 DCW [id number]) PT-Bed Mobility Assessment Sit to Supine Sit to Supine Minimal Assistance PT-Transfer Assessment Sit to and From Stand Sit to and from Stand Standby Assistance Use of Upper Extremities Equipment Transfer Assistive Device Gait Belt Front Wheeled Walker Transfers Transfer Destination Bed Transfer Ability Level of Assist Standby Assistance Use of Upper Extremities Comments Mobility Comments Pt required Min Ax1 lifting affected leg into bed following his therapy session Gait Assessment Gait Gait Assistance Required: Contact Guard Assist Distance (Feet) (feet) 212 Assistive Devices Assistive Device Gait Belt Front Wheeled Walker Gait Deviations General Gait Pattern Antalgic Decreased Stride Length Decreased Feet Clearance Step-to Gait Factors Limiting Gait Function Factors Limiting Gait Function Decreased Activity Tolerance Decreased Strength Limited Range of Motion Pain Stair Climbing Assessment Evaluation Level of Assist On Stairs Standby Assistance Devices Stair Climbing Assistive Devices Left Railing Technique/Endurance Stair Climbing Direction Ascend and Descend Stair Climbing Technique Step to Step Number of Steps Climbed 3 Query Text: Stair Climbing Set # Repetitions (reps) 1 Comments Stair Climbing Comments Verbal reminder of proper technique M7 PT-IP Assessment and Plan Start: 04/26/18 08:14 Freq: NEEDED Status: Active Protocol: Document 04/28/18 14:58 DCW (Rec: 04/28/18 15:42 DCW [id number]) PT Summary Assessment and Plan Summary Impairments Pain ROM Strength Bed Mobility Transfers Gait Activity Tolerance Progress Towards Goals Progressing Toward Goals Assessment Summary Minor verbal cues with gait and stairs still needed, increased activity tolerance. When fatiguing, pt falls back into step-to pattern, displays fairly slow pat. Goals Bed Mobility Goal Independent Transfer Goal Independent Crutches Front Wheeled Walker Gait Goal Independent Crutches Front Wheel Walker Other Goals Up/down two steps with CGA, LRAD and/or 1 rail. Days to Meet Goals 1 Frequency of Treatment Frequency Of Treatment Twice a Day Treatment Plan Physical Therapy Treatment Plan Bed Mobility Training Transfer Training Gait Training Therapeutic Exercise Discharge Planning Other Recommendations and Next Treatment review Home HEP, LE Focus strengthening Recommendations To Nursing Amount of Assist Needed 1 Person Assist Discharge Recommendations PT Discharge Recommendations Home with Assistance Home Health Outpatient PT
[2018-04-28] MEDS: SODIUM CHLORIDE 0.9% FLUSH 10 ML IV (20:02)
[2018-04-29 00:12] VITALS: BP 125/82; PULSE 125; RESP 16; TEMP 37; O2SAT 97
[2018-04-29] MEDS: OXYCODONE IR 10 MG TABLET PO ×3 (00:19→12:43)
[2018-04-29] MEDS: ACETAMINOPHEN 325 MG TABLET 650 MG PO ×2 (00:20→06:06)
[2018-04-29 08:14] VITALS: BP 139/80; PULSE 89
[2018-04-29] MEDS: METOPROLOL ER 50 MG TABLET 100 MG PO (08:15)
[2018-04-29] MEDS: LOSARTAN 25 MG TABLET PO (08:15)
[2018-04-29] MEDS: ASPIRIN EC 81 MG TABLET PO (08:15)
[2018-04-29] MEDS: DOCUSATE 100 MG CAPSULE PO (08:15)
[2018-04-29] MEDS: SODIUM CHLORIDE 0.9% FLUSH 10 ML IV (08:20)
[2018-04-29 08:35] VITALS: BP 139/80; PULSE 89
--- NOTE | 2018-04-29 08:35 | P.PN_ITS ---
Subjective Date Patient Seen: 04/29/18 Time Patient Seen: 08:28 Interval history: The patient states he feels good this morning. He is sitting up in the chair having breakfast. In no acute distress. During the evening shift wall up ambulating his heart rate did accelerate to 130. He did not require use of IV diltiazem. Patient has remained asymptomatic with a sinus tach and PSVT. At rest his heart rate remains in the 70s to mid 80s. Exam Vital Signs (past 8 hours): Vital Signs - 8 hr 3 04/29/18 08:14 Pulse Rate 89 Blood Pressure 139/80 H Pulse Oximetry 97 Oxygen Delivery Method Room Air Oxygen Flow Rate 0 Narrative Exam Narrative: GENERAL: Well-appearing, well-nourished and in no acute distress. HEENT: Head normocephalic, atraumatic. Eyes pupils equal round NECK: Supple, no JVD, CHEST: Breath sounds equal bilaterally, no wheezes rales or rhonchi. CARDIAC: Regular rate and rhythm without murmurs, heart rate 84, no rubs or gallops. ABDOMEN: Soft, nontender. Normoactive bowel sounds all 4 quadrants. No guarding or rebound. EXTREMITIES: No pitting edema on bilateral ankles. He has mild inflammation of the right knee. No calf tenderness, he has full range of motion at the ankles, and is neurovascularly intact in the extremities Right knee was dressed and dressing was intact with minimal spotting. NEUROLOGICAL: Alert and oriented; Normal muscle strength. SKIN: Warm, dry, no petechiae, no rashes or lesions. Objective Labs Result Diagrams: 04/27/18 14:35 04/27/18 14:35 Assessment & Plan Plan: Assessment/Plan Narrative: 1. Paroxysmal supraventricular tachycardia: Yesterday morning, during ambulation, he had an episode of PSVT rate 150-160 treated with IV diltiazem. He does not appear dehydrated. Oral intake adequate. Urine output adequate. His THS was normal. He was started yesterday on oral metoprolol XL 100 mg. There has been no need for further IV diltiazem for rate control since yesterday morning. His heart rate remains in the 80s at rest with an occasional sinus tachycardia while ambulating. He is completely asymptomatic, denying lightheadedness, shortness of breath, chest pain, nausea. We will continue his metoprolol XL at 100 mg daily. Twelve lead EKG unchanged from previous. He will need to be followed up by his primary care provider. 2. Hypertension: Start metoprolol XL 100 mg daily Decrease losartan from 50 mg once a day to 25 mg once a day. His blood pressure is currently well controlled. 3. Osteoarthritis in the right knee: Status post right total knee arthroplasty by Dr. Mclaughlin on April 25, 2018. Followed by Orthopedics service as outpatient. Quality VTE Deep Vein Thrombosis/Pulmonary Embolism Present on Admission: No
--- NOTE | 2018-04-29 08:59 | PC.NURSE ---
12 lead EKG performed. Ambulated around hallway with a walker and RN. No s/s of distress while ambulating. NO SOB. Dr. Crane viewed the EKG strip results. Pt will be d/c'ed on 100mg Metoprolol.
--- NOTE | 2018-04-29 09:20 | PT.IPTN ---
Current Diagnoses Unilateral primary osteoarthritis, right knee (04/25/18) Unilateral post-traumatic osteoarthritis, right knee (04/25/18) Derangement of unspecified lateral meniscus due to old tear or injury, right knee (04/25/18) Presence of unspecified artificial knee joint (04/25/18) Surgery Performed Operation Date: 04/25/18 13:45 Actual Procedures p Total Knee Arthroplasty(Right) - Tommie Mclaughlin MD Physical Therapy Treatment Note M2 PT-IP Current Condition Start: 04/26/18 08:14 Freq: NEEDED Status: Active Protocol: Document 04/26/18 14:15 DCW (Rec: 04/26/18 15:00 DCW [id number]) Physical Therapy Current Condition Current Condition Evaluation Date 04/26/18 Treatment Diagnosis impaired mobility s/p R TKA Onset Date 04/25/18 Weight Bearing Status Weight Bearing Status Weight Bear as Tolerated M3 PT-IP Subjective Start: 04/26/18 08:14 Freq: NEEDED Status: Active Protocol: Document 04/29/18 09:20 GGD (Rec: 04/29/18 12:13 GGD [id number]) Subjective Physical Therapy Visit Type Type Treatment Note Visit Start Time 08:55 Visit Stop Time 09:00 Total Visit Minutes 25 Number of DIRECTOR BUSINESS INTELLIGENCE Visits 1 Physical Therapy Visit Comments Patient Comments Pt states he walked with RN this morning. Therapy Pain Assessment Pain When Pain Assessed At Rest Pain Present Pain Present Pain Reported M4 PT-IP Mobility and Gait Start: 04/26/18 08:14 Freq: NEEDED Status: Active Protocol: Document 04/29/18 09:20 GGD (Rec: 04/29/18 12:13 GGD [id number]) PT-Bed Mobility Assessment Supine to Sit Supine to Sit Standby Assistance Sit to Supine Sit to Supine Standby Assistance Scooting Scooting to Edge of Bed Independent PT-Transfer Assessment Sit to and From Stand Sit to and from Stand Standby Assistance Use of Upper Extremities Equipment Transfer Assistive Device Gait Belt Front Wheeled Walker Transfers Transfer Destination Bed Transfer Ability Level of Assist Standby Assistance Use of Upper Extremities Gait Assessment Gait Gait Assistance Required: Contact Guard Assist Distance (Feet) (feet) 100 Assistive Devices Assistive Device Gait Belt Front Wheeled Walker Gait Deviations General Gait Pattern Antalgic Decreased Stride Length Decreased Feet Clearance Step-to Gait Factors Limiting Gait Function Factors Limiting Gait Function Decreased Activity Tolerance Decreased Strength Limited Range of Motion Pain M5 PT-IP Objective Assessments Start: 04/26/18 08:14 Freq: NEEDED Status: Active Protocol: Document 04/26/18 10:20 RS (Rec: 04/26/18 12:20 RS [id number]) Orientation Orientation/Cognition Level of Alertness Alert Orientation Name Age Birthday Month Date Year Day of Week Place Situation Language Function Ability No Deficits Noted Safety Awareness Understands Safety Issues Memory Description No Deficits Noted Gross Range of Motion Upper Extremity ROM Assessment Within Functional Limits Lower Extremity ROM Assessment Right Impaired Strength Upper Extremity Strength Assessment Within Functional Limits Comments Strength Comments RLE not formally tested, LLE WFL. M6 PT-IP Treatment Start: 04/26/18 08:14 Freq: NEEDED Status: Active Protocol: Document 04/29/18 09:20 GGD (Rec: 04/29/18 12:14 GGD [id number]) Physical Therapy Treatment Exercises Exercises Ankle Pumps Quad Sets Heel Slides Short Arc Quads Seated Knee Flexion/Extension M7 PT-IP Assessment and Plan Start: 04/26/18 08:14 Freq: NEEDED Status: Active Protocol: Document 04/29/18 09:20 GGD (Rec: 04/29/18 12:13 GGD [id number]) PT Summary Assessment and Plan Summary Assessment Summary Pt had decrease tolerance to gait due to increase in pain. Frequency of Treatment Frequency Of Treatment Twice a Day Treatment Plan Other Recommendations and Next Treatment review Home HEP, LE Focus strengthening Recommendations To Nursing Amount of Assist Needed 1 Person Assist Discharge Recommendations PT Discharge Recommendations Home with Assistance Home Health Outpatient PT
--- NOTE | 2018-04-29 09:26 | P.DS_ITS ---
History of Present Illness Date Patient Seen: 04/29/18 Time Patient Seen: 09:17 Chief complaint: 12833 RIGHT TOTAL KNEE ARTHROPLASTY Narrative: Patient is a 57-year-old male with history of right knee osteoarthritis. He failed conservative measures and elected to proceed with right total knee replacement with Dr. Mclaughlin. Discharge Providers Date of admission: 04/25/18 11:51 Consults: 04/25/18 15:50 Consult to Discharge Planning Routine Comment: Consult to Physical Therapy Evaluate & Treat Comment: Physician Instructions: postop TKA protocol 04/27/18 07:56 Consult to Hospitalist Service Routine Comment: Consulting Provider: Mely Serrano Reason for consultation: SVT last night Has provider been notified: Yes Discharge provider: Lisa Mcrae PA-C Summary Discharge Diagnosis: Right knee osteoarthritis Hypertension Paroxysmal supraventricular tachycardia Hospital Course: Patient was admitted and taken the operating room he had a right total knee replacement by Dr. Mclaughlin. He recovered well and was transferred to the floor for further care. During his hospital stay, he developed Paroxysmal supraventricular tachycardia and hospitalist was consulted. He was started on IV diltiazem for rate control. Cardiac enzymes were negative. He was started on metoprolol 100mg daily and his losartan was decreased to 50mg daily. PD3, diltiazem was stopped. PD4, HR inceased to 125, 12 lead EKG was performed after walking. He was cleared by hospital service for d/c home after 12 lead EKG with rx for metroprol 100mg daily. He is to f/u with PCP next week in regards to cardiac issues. Status at Discharge Cognitive/behavioral status at discharge: Alert and orient x3 Functional status at discharge: uses cane/walker Overall status at discharge: patient is progressing back to baseline Time Spent with Patient Less than 30 minutes Exam Vital Signs (past 8 hours): Vital Signs - 8 hr 3 04/29/18 08:14 Pulse Rate 89 Blood Pressure 139/80 H Pulse Oximetry 97 Oxygen Delivery Method Room Air Oxygen Flow Rate 0 Narrative Exam Narrative: Patient in bed. Appears comfortable. Alert and orient x3. Right knee dressing with 1 spot of blood at the lower end of the dressing. Moderate swelling in right knee with some ecchymosis. Bilateral calf soft and nontender. Five hundred five right ankle strength. Neurovascular status intact Objective Labs Result Diagrams: 04/27/18 14:35 04/27/18 14:35 Discharge Plan Discharge Plan Patient Disposition: Home, Self-Care Discharge comment: New rx for metoprolol 100mg qd. F/U wit PCP in regards to cardiac issues next week. Start PT next week. Discharge Med Rec/Prescriptions Prescriptions: New aspirin 81 mg Tablet,Delayed Release (Dr/Ec) 81 mg PO BID Qty: 0 RF: 0 docusate sodium 100 mg Capsule 100 mg PO BID Qty: 0 RF: 0 oxycodone 10 mg Tablet 5 mg PO Q4H PRN (Reason: Pain, Moderate) Qty: 0 RF: 0 losartan 25 mg tablet 25 mg PO DAILY Qty: 30 RF: 0 metoprolol succinate 100 mg tablet extended release 24 hr 100 mg PO DAILY Qty: 30 RF: 3 Continue omeprazole 20 mg Capsule,Delayed Release(Dr/Ec) 20 mg PO PRN PRN (Reason: Heartburn) RF: 0 Discontinued losartan 50 mg Tablet 50 mg PO DAILY RF: 0 Follow up/Referrals: Shae Zavala PA-C [Physician] - 05/06/18 1:00 pm (At the [place] office.) Mely Serrano MD [Physician] - 3-5 Days (Please make an appointment within 3-5 days of d/c) Provider Discharge Instructions Diet: Diet as Tolerated Activity: WBAT, rest when needed Cold/Heat Therapy: Ice and elevate at least 20 minutes per hour while awake Wound Care Report to your healthcare provider any signs of infection, such as:: chills, fever, night sweats, increased pain and unusual drainage Dressing: Keep Aquacel dressing on, may shower with it on, no bathing or soaking. Visit Report/Discharge Packet Instructions: DI for Knee Replacement Visit Report Forms: Stroke Signs & Symptoms Discharge Data Attending Provider: Tommie Mclaughlin Admit Date/Time: 04/25/18 11:51 Quality VTE Deep Vein Thrombosis/Pulmonary Embolism Present on Admission: No
--- NOTE | 2018-04-29 10:34 | PC.NURSE ---
DRESSING CHANGE Incision site is clean, dry, and intact. Surgical glue intact. Incision well approximated, scant old drainage. Swelling, bruising, and some erythema around incision site and knee. Aquacel dressing replaced. Tolerated well. No s/s of distress. Pain well managed.
== END 2018-04-29 12:50 | disposition home or self-care (01) | DRG 302 ==
PROVIDERS: Internal Medicine; Admitting Provider Orthopaedic Surgery; Visit Provider Orthopaedic Surgery
PROC: 0SRC0JZ Replacement of Right Knee Joint with Synthetic Substitute, Open Approach (ICD-10-PCS; CPT 27447; principal; 2018-04-25 13:45)
DX: M17.31 Unilateral post-traumatic osteoarthritis, right knee (principal); I47.1 Supraventricular tachycardia; G47.00 Insomnia, unspecified; K21.9 Gastro-esophageal reflux disease without esophagitis; I10 Essential (primary) hypertension; F32.9 Major depressive disorder, single episode, unspecified
CPT/HCPCS: 36415; 73560; 80048; 82550; 82553; 84443; 84484; 85014; 85018; 85025; 93005; 97110; 97116; 97161; 97530; C1776; C9290; J0690; J1170; J2250; J2270; J2704; J3010